=== PATIENT | female | born 1965 | race Caucasian/White ===

== ENCOUNTER 2025-04-07 11:03 | Emergency (ER) | payer OTHER, SELFPAY ==
[~2025-04-07] VITALS: Ht 167.6 cm; Wt 79.7 kg
[~2025-04-07 11:03] MED LIST: ANTACID PO; FLON0.054; VICO5TAB17 PO
[2025-04-07] MEDS ORDERED: OXYC10TA3 PO ×2 (11:30→13:05)
[2025-04-07] MEDS ORDERED: NEUR600T PO (11:30)
[2025-04-07] MEDS ORDERED: TIZA10TA PO (11:30)
[2025-04-07] MEDS ORDERED: DICL100G10 TOP ×2 (11:30→12:50)
[2025-04-07 12:28] VITALS: BP 133/93; TEMP 98; O2SAT 96
[2025-04-07] MEDS ORDERED: GABA-1490 PO (12:50)
[2025-04-07] MEDS ORDERED: TIZA4CAP PO (12:50)
[2025-04-07] MEDS: PERCOCET 5MG/325MG TAB PO ONE (12:57)
== END 2025-04-07 13:19 | disposition home or self-care (01) ==
LOC: M ED 11:03
DX: Z76.0 Encounter for issue of repeat prescription (principal); C56.9 Malignant neoplasm of unspecified ovary; C34.90 Malignant neoplasm of unspecified part of unspecified bronchus or lung; Z88.5 Allergy status to narcotic agent; Z88.8 Allergy status to other drugs, medicaments and biological substances; Z79.899 Other long term (current) drug therapy